=== PATIENT | female | born 1965 | race Caucasian/White ===

== ENCOUNTER 2018-07-02 21:03 | Inpatient (IN) | payer OTHER, SELFPAY ==
[~2018-07-02] VITALS: Ht 154.9 cm; Wt 55.7 kg
--- NOTE | 2018-07-02 21:27 | NUR ---
BROUGHT IN BY HARJINDER FOR ABD CRAMPING. PT TENDER IN ALL 4 QUADRANTS, STATES SHE HAS HAD THIS BEFORE. PT ALSO HYPERTENSIVE AT TRIAGE. PLACED ON PULSE OX AND BP MONITOR, CALL LIGHT IN REACH
[2018-07-02] MEDS ORDERED: MORPHINE SULFATE 4 MG/ML, 1ML IVPush PRN (21:30)
[2018-07-02] MEDS ORDERED: LABETALOL 5 MG/ML SYRINGE IVPush ONE (21:30)
[2018-07-02] MEDS ORDERED: SODIUM CHLORIDE FLUSH 10ML SYR IVF ONE (21:30)
[2018-07-02] MEDS ORDERED: ONDANSETRON 2MG/ML, 2ML IVPush ONE (21:30)
[2018-07-02] MEDS ORDERED: ONDANSETRON 2MG/ML, 2ML ONE ×2 (21:32→22:45)
[2018-07-02] MEDS ORDERED: MORPHINE SULFATE 4 MG/ML, 1ML ONE (21:33)
[2018-07-02 21:40] LABS: BASOPHILS % (AUTO) 0 % (0-1); EOSINOPHILS % (AUTO) 0 % (1-7); LYMPHOCYTES # (AUTO) 0.65 x10^3/uL (1-3.4); LYMPHOCYTES % (AUTO) 6 % (22-44); MD NO; MEAN CORPUSCULAR HEMOGLOBIN 32.1 pg (27.0-34.8); MEAN CORPUSCULAR HGB CONC 33.9 g/dL (32.4-35.8); MEAN CORPUSCULAR VOLUME 94.6 fL (80-100); MEAN PLATELET VOLUME 8.3 fL (7.4-10.4); MONOCYTES # (AUTO) 0.31 x10^3/uL (0.2-0.8); MONOCYTES % (AUTO) 3 % (2-9); NEUTROPHILS # (AUTO) 10.78 x10^3/uL (1.8-6.8); NEUTROPHILS % (AUTO) 92 % (42-75); PLATELET COUNT 229 x10^3/uL (130-400); RED CELL DISTRIBUTION WIDTH 13.6 % (9.6-15.2)
[2018-07-02 21:57] LABS: ALKALINE PHOSPHATASE 131 U/L (45-117); BILIRUBIN,TOTAL 0.5 mg/dL (0.2-1.0); TROPONIN I < 0.015 ng/mL (0.000-0.045)
[2018-07-02] MEDS ORDERED: PLEASE ENTER HEIGHT AND WEIGHT MC SCH (22:00)
[2018-07-02] MEDS ORDERED: PLEASE ENTER ALLERGIES MC SCH (22:00)
[2018-07-02 22:02] LABS: ALANINE AMINOTRANSFERASE 47 U/L (12-78); ALBUMIN 4.4 g/dL (3.4-5.0); ANION GAP 8 mmol/L (5-15); CALCIUM 8.7 mg/dL (8.5-10.1); CHLORIDE 104 mmol/L (98-107); CREATININE 0.65 mg/dL (0.55-1.02)
[2018-07-02] MEDS ORDERED: OMNIPAQUE 350 MG/ML, 100ML BOTTLE ONE (22:39)
--- NOTE | 2018-07-02 22:45 | NUR ---
ASSISTED PT TO BATHROOM, PT WALKED WITH FAIRLY STEADY GAIT
[2018-07-02] MEDS ORDERED: SODIUM CHLORIDE 0.9% 1,000 ML IV ONE (22:54)
[2018-07-02] MEDS ORDERED: ENALAPRILAT 1.25 MG/ML, 2ML IV ONE (23:30)
[2018-07-02] MEDS ORDERED: ENALAPRILAT 1.25 MG/ML, 2ML ONE (23:35)
--- NOTE | 2018-07-02 23:40 | NUR ---
PT PRESSURE DOWN TO 212/134, PT GIVEN VASOTEC, NG TUBE INSERTED SUCCESFULLY
[2018-07-03 00:42] VITALS: BP 220/114
[2018-07-03] MEDS ORDERED: SODIUM CHLORIDE 0.9% 1,000 ML IV SCH (00:46)
[2018-07-03] MEDS ORDERED: ACETAMINOPHEN 325 MG TABLET PO PRN (01:00)
[2018-07-03] MEDS ORDERED: ONDANSETRON 2MG/ML, 2ML IVPush PRN (01:00)
[2018-07-03] MEDS: hydrALAzine 20 MG/ML, 1ML IVPush PRN ×2 (01:28→05:31)
[2018-07-03 02:00] VITALS: BP 173/104
[2018-07-03 02:20] LABS: BASOPHILS # (AUTO) 0.01 x10^3/uL (0-0.1); BASOPHILS % (AUTO) 0 % (0-1); EOSINOPHILS % (AUTO) 0 % (1-7); LYMPHOCYTES # (AUTO) 0.75 x10^3/uL (1-3.4); LYMPHOCYTES % (AUTO) 6 % (22-44); MD NO; MEAN CORPUSCULAR HGB CONC 33.9 g/dL (32.4-35.8); MEAN CORPUSCULAR VOLUME 94.4 fL (80-100); MEAN PLATELET VOLUME 8.7 fL (7.4-10.4); MONOCYTES # (AUTO) 0.55 x10^3/uL (0.2-0.8); MONOCYTES % (AUTO) 4 % (2-9); NEUTROPHILS % (AUTO) 90 % (42-75); PLATELET COUNT 207 x10^3/uL (130-400); RED BLOOD COUNT 5.32 x10^6/uL (3.82-5.3); RED CELL DISTRIBUTION WIDTH 14.2 % (9.6-15.2)
[2018-07-03 04:29] LABS: MICROSCOPIC INDICATED
[2018-07-03 04:30] LABS: HCG UR SG > 1.045 (1.003-1.030)
[2018-07-03 04:51] LABS: CULTURE INDICATED? YES
[2018-07-03] MEDS ORDERED: HYDROmorphone 2 MG/ML, 1ML ONE ×4 (05:27→19:29)
[2018-07-03] MEDS ORDERED: HYDROmorphone 1 MG/ML, 1ML INJ IM PRN (05:30)
[2018-07-03] MEDS: HYDROmorphone 1 MG/ML, 1ML INJ IV PRN ×4 (05:33→19:33)
[2018-07-03] MEDS ORDERED: HYDROmorphone 1 MG/ML, 1ML INJ IV PRN (06:00)
[2018-07-03 06:47] VITALS: BP 124/76
[2018-07-03] MEDS: FAMOTIDINE 20 MG/2 ML IVPush SCH ×2 (07:57→20:50)
[2018-07-03 10:41] LABS: AMPHETAMINE SCREEN, URINE Positive (Negative); BARBITURATE SCREEN, URINE Negative (Negative); BENZODIAZEPINE SCREEN, URINE Negative (Negative); CANNABINOID SCREEN, URINE Positive (Negative); COCAINE SCREEN, URINE Negative (Negative); METHADONE SCREEN, URINE Negative (Negative); OPIATE SCREEN, URINE Positive (Negative)
[2018-07-03] MEDS ORDERED: CEFTRIAXONE PMX 1GM/50ML 50 ML IV SCH (11:30)
[2018-07-03] MEDS ORDERED: LORazepam 2 MG/ML, 1ML IVPush PRN (12:00)
[2018-07-03 12:44] LABS: PROTHROMBIN TIME 10.5 Seconds (9.6-11.5)
[2018-07-03 13:07] VITALS: BP 136/87
[2018-07-03] MEDS: SODIUM CHLORIDE 0.9% 1,000 ML IV SCH (14:54)
[2018-07-03 18:48] VITALS: BP 170/103
[2018-07-04] MEDS: hydrALAzine 20 MG/ML, 1ML IVPush PRN ×4 (00:46→19:47)
[2018-07-04 00:47] VITALS: BP 217/130
[2018-07-04 02:13] VITALS: BP 173/95
[2018-07-04 05:32] LABS: MEAN CORPUSCULAR VOLUME 94.1 fL (80-100); MEAN PLATELET VOLUME 8.9 fL (7.4-10.4); PLATELET COUNT 223 x10^3/uL (130-400); RED CELL DISTRIBUTION WIDTH 14.2 % (9.6-15.2)
[2018-07-04 05:40] LABS: ALANINE AMINOTRANSFERASE 33 U/L (12-78); ALBUMIN 3.5 g/dL (3.4-5.0); ANION GAP 9 mmol/L (5-15); CALCIUM 8.8 mg/dL (8.5-10.1); CHLORIDE 108 mmol/L (98-107); CREATININE 0.85 mg/dL (0.55-1.02)
[2018-07-04 05:42] LABS: ALKALINE PHOSPHATASE 97 U/L (45-117); BILIRUBIN,TOTAL 1.3 mg/dL (0.2-1.0); TOTAL PROTEIN 6.9 g/dL (6.4-8.2)
[2018-07-04 05:51] LABS: MD YES
[2018-07-04 05:56] LABS: BANDS%(MANUAL) 22 % (0-7); BASOS#(MANUAL) 0.03 x10^3/uL (0-0.1); BASOS% (MANUAL) 1 % (0-1); LYMPH#(MANUAL) 0.35 x10^3/uL (1-3.4); LYMPHS% (MANUAL) 11 % (22-44); MONOS#(MANUAL) 0.42 x10^3/uL (0.3-2.7); MONOS% (MANUAL) 13 % (2-9); SEGS% (MANUAL) 53 % (42-75)
[2018-07-04 05:57] LABS: <PLATELET ESTIMATE> ADEQUATE; <PLT MORPHOLOGY> NORMAL PLT MORPH; <RBC MORPHOLOGY> NORMAL
[2018-07-04] MEDS: SODIUM CHLORIDE 0.9% 1,000 ML IV SCH (06:19)
[2018-07-04] MEDS ORDERED: POTASSIUM CHLORIDE 40 MEQ in SODIUM CHLORIDE 0.9% 500 ML IV ONE (06:30)
[2018-07-04] MEDS ORDERED: MAGNESIUM SULFATE 3 GM in SODIUM CHLORIDE 0.9% 100 ML IV ONE (06:30)
[2018-07-04 07:07] VITALS: BP 164/105
[2018-07-04] MEDS: FAMOTIDINE 20 MG/2 ML IVPush SCH ×2 (09:00→19:47)
[2018-07-04] MEDS ORDERED: AZITHROMYCIN 500 MG in SODIUM CHLORIDE 0.9% 250 ML IV SCH (10:00)
[2018-07-04 10:31] LABS: FIO2 RA %
[2018-07-04] MEDS ORDERED: SODIUM CHLORIDE 0.9% 1,000ML IVBOLUS STA (11:58)
[2018-07-04] MEDS ORDERED: PHARMACOKINETIC CONSULTATION MC ONE (12:30)
[2018-07-04] MEDS ORDERED: VANCOMYCIN PER PHARMACY MC PRN (12:30)
[2018-07-04] MEDS ORDERED: PHARMACOKINETIC MONITORING MC PRN (12:30)
[2018-07-04] MEDS: PIPERACILLIN/TAZO/PMX 3.375GM 50 ML IV SCH ×2 (12:59→19:33)
[2018-07-04 13:10] VITALS: BP 182/116
[2018-07-04] MEDS ORDERED: LORazepam 2 MG/ML, 1ML ONE (14:11)
[2018-07-04] MEDS ORDERED: MIDAZOLAM 1 MG/ML, 2ML ONE (14:17)
[2018-07-04] MEDS ORDERED: FENTANYL PF 250 MCG/5ML ONE (14:17)
[2018-07-04] MEDS ORDERED: SUCCINYLCHOLINE 20 MG/ML, 10ML ONE (14:18)
[2018-07-04] MEDS ORDERED: PROPOFOL 10 MG/ML, 20ML ONE (14:18)
[2018-07-04] MEDS ORDERED: ROCURONIUM 10MG/ML,5ML ONE (14:18)
[2018-07-04] MEDS: VANCOMYCIN PMX 1GM/200ML 200 ML IV SCH (14:24)
[2018-07-04] MEDS ORDERED: LORazepam 2 MG/ML, 1ML IV PRN (14:30)
[2018-07-04] MEDS ORDERED: PHENYLEPHRINE 10 MG/ML ONE (14:58)
[2018-07-04] MEDS ORDERED: HYDROCORTISONE 100 MG INJ. ONE (15:14)
[2018-07-04] MEDS ORDERED: BUPIVACAINE/PF-EPI 0.5% 1:200K INFIL ONE (15:38)
[2018-07-04] MEDS ORDERED: FENTANYL PF 100 MCG/2ML ONE (15:46)
[2018-07-04] MEDS ORDERED: PROPOFOL 50 ML ONE (15:48)
[2018-07-04] MEDS ORDERED: HYDROmorphone 2 MG/ML, 1ML ONE (16:31)
[2018-07-04] MEDS: HYDROmorphone 1 MG/ML, 1ML INJ IV PRN (16:32)
[2018-07-04] MEDS ORDERED: PROPOFOL 100 ML IV ONE (16:37)
[2018-07-04] MEDS ORDERED: ONDANSETRON 2MG/ML, 2ML IV PRN (17:00)
[2018-07-04] MEDS ORDERED: morphine SULFATE 10 MG/ML, 1ML IV PRN (17:00)
[2018-07-04] MEDS ORDERED: CEFOTETAN PMX 1GM/50ML 50 ML IVPB SCH (17:00)
[2018-07-04] MEDS ORDERED: LORazepam 1MG TABLET PO PRN (17:00)
[2018-07-04] MEDS: FENTANYL PF 2,500 MCG in SODIUM CHLORIDE 0.9% 200 ML IV PRN (17:08)
[2018-07-04 17:12] LABS: ALBUMIN 2.4 g/dL (3.4-5.0); ANION GAP 7 mmol/L (5-15); CALCIUM 7.1 mg/dL (8.5-10.1); CHLORIDE 115 mmol/L (98-107)
[2018-07-04 17:16] LABS: ALANINE AMINOTRANSFERASE 24 U/L (12-78); ALKALINE PHOSPHATASE 72 U/L (45-117); BILIRUBIN,TOTAL 1.9 mg/dL (0.2-1.0); CREATININE 0.63 mg/dL (0.55-1.02)
[2018-07-04] MEDS ORDERED: PHARMACY MAY ADJ FOR RENAL FX MC SCH (17:30)
[2018-07-04] MEDS ORDERED: DEXTROSE 4 GM TAB.CHEW PO PRN (17:30)
[2018-07-04] MEDS ORDERED: DEXTROSE 50%, 50ML SYRINGE IVPush PRN (17:30)
[2018-07-04] MEDS ORDERED: GLUCAGON 1 MG IM PRN (17:30)
[2018-07-04] MEDS ORDERED: LIDOCAINE-MPF 1%, 2ML ENDO PRN (17:30)
[2018-07-04] MEDS: METRONIDAZOLE PMX 500MG/100ML 100 ML IVPB SCH (17:41)
[2018-07-04] MEDS: POTASSIUM CHLORIDE 20 MEQ in LACTATED RINGERS 1,000 ML IV SCH (18:40)
[2018-07-04] MEDS: ALBUTEROL/IPRATROPIUM 2.5MG/0.5MG, 3 ML INLINE SCH ×2 (19:15→23:30)
[2018-07-04] MEDS: SODIUM CHLORIDE FLUSH 10ML SYR IVF SCH (19:49)
[2018-07-04 20:02] LABS: INTERNATIONAL NORMALIZED RATIO 1.21 (0.93-1.1); PROTHROMBIN TIME 12.6 Seconds (9.6-11.5)
[2018-07-04 20:10] LABS: BASOPHILS % (AUTO) 0 % (0-1); EOSINOPHILS % (AUTO) 0 % (1-7); LYMPHOCYTES # (AUTO) 0.44 x10^3/uL (1-3.4); LYMPHOCYTES % (AUTO) 8 % (22-44); MEAN CORPUSCULAR HEMOGLOBIN 32.3 pg (27.0-34.8); MEAN CORPUSCULAR HGB CONC 34.4 g/dL (32.4-35.8); MEAN CORPUSCULAR VOLUME 93.8 fL (80-100); MEAN PLATELET VOLUME 9.2 fL (7.4-10.4); MONOCYTES % (AUTO) 5 % (2-9); NEUTROPHILS # (AUTO) 4.85 x10^3/uL (1.8-6.8); NEUTROPHILS % (AUTO) 87 % (42-75); PLATELET COUNT 185 x10^3/uL (130-400); RED BLOOD COUNT 4.42 x10^6/uL (3.82-5.3); RED CELL DISTRIBUTION WIDTH 14.4 % (9.6-15.2)
[2018-07-04 20:11] LABS: MD NO
[2018-07-04 20:41] LABS: TROPONIN I 0.077 ng/mL (0.000-0.045)
[2018-07-04] MEDS: INSULIN LISPRO 100 UNITS/ML, PEN SQ-INSULIN SCH (20:51)
[2018-07-05] MEDS: VANCOMYCIN PMX 1GM/200ML 200 ML IV SCH (00:07)
[2018-07-05 00:56] LABS: TROPONIN I 0.061 ng/mL (0.000-0.045)
[2018-07-05] MEDS: PROPOFOL 100 ML IV PRN ×2 (00:56→09:57)
[2018-07-05] MEDS: PIPERACILLIN/TAZO/PMX 3.375GM 50 ML IV SCH ×4 (01:31→20:30)
[2018-07-05] MEDS: METRONIDAZOLE PMX 500MG/100ML 100 ML IVPB SCH (02:44)
[2018-07-05] MEDS: ALBUTEROL/IPRATROPIUM 2.5MG/0.5MG, 3 ML INLINE SCH ×6 (03:30→23:01)
[2018-07-05 04:37] LABS: ALBUMIN 2.1 g/dL (3.4-5.0); ANION GAP 4 mmol/L (5-15); CALCIUM 7.5 mg/dL (8.5-10.1); CHLORIDE 115 mmol/L (98-107)
[2018-07-05 04:39] LABS: BASOPHILS # (AUTO) 0.01 x10^3/uL (0-0.1); BASOPHILS % (AUTO) 0 % (0-1); EOSINOPHILS % (AUTO) 0 % (1-7); LYMPHOCYTES # (AUTO) 0.41 x10^3/uL (1-3.4); LYMPHOCYTES % (AUTO) 6 % (22-44); MD NO; MEAN CORPUSCULAR HEMOGLOBIN 32.3 pg (27.0-34.8); MEAN CORPUSCULAR VOLUME 94.9 fL (80-100); MONOCYTES # (AUTO) 0.45 x10^3/uL (0.2-0.8); MONOCYTES % (AUTO) 6 % (2-9); NEUTROPHILS # (AUTO) 6.37 x10^3/uL (1.8-6.8); NEUTROPHILS % (AUTO) 88 % (42-75); PLATELET COUNT 173 x10^3/uL (130-400); RED BLOOD COUNT 3.85 x10^6/uL (3.82-5.3)
[2018-07-05 04:42] LABS: ALANINE AMINOTRANSFERASE 21 U/L (12-78); ALKALINE PHOSPHATASE 68 U/L (45-117); BILIRUBIN,TOTAL 1.4 mg/dL (0.2-1.0); CREATININE 0.88 mg/dL (0.55-1.02); TOTAL PROTEIN 4.8 g/dL (6.4-8.2)
[2018-07-05] MEDS: INSULIN LISPRO 100 UNITS/ML, PEN SQ-INSULIN SCH ×4 (05:41→20:30)
[2018-07-05] MEDS: POTASSIUM CHLORIDE 20 MEQ in LACTATED RINGERS 1,000 ML IV SCH (05:41)
[2018-07-05] MEDS: SODIUM CHLORIDE 0.45% 1,000 ML IV SCH ×2 (08:15→20:30)
[2018-07-05] MEDS: FAMOTIDINE 20 MG/2 ML IVPush SCH ×2 (08:15→20:29)
[2018-07-05] MEDS: SODIUM CHLORIDE FLUSH 10ML SYR IVF SCH ×2 (08:15→20:34)
[2018-07-05] MEDS ORDERED: ZIPRASIDONE 20 MG INJ IM PRN (12:00)
[2018-07-05] MEDS: ENOXAPARIN 40 MG/0.4 ML SQ SCH (15:28)
[2018-07-05] MEDS: hydrALAzine 20 MG/ML, 1ML IVPush PRN (20:29)
[2018-07-06] MEDS: ALBUTEROL/IPRATROPIUM 2.5MG/0.5MG, 3 ML INLINE SCH ×2 (02:39→06:29)
[2018-07-06] MEDS: PIPERACILLIN/TAZO/PMX 3.375GM 50 ML IV SCH ×4 (02:59→21:05)
[2018-07-06 04:39] LABS: BASOPHILS # (AUTO) 0.01 x10^3/uL (0-0.1); BASOPHILS % (AUTO) 0 % (0-1); EOSINOPHILS # (AUTO) 0.01 x10^3/uL (0-0.4); EOSINOPHILS % (AUTO) 0 % (1-7); LYMPHOCYTES # (AUTO) 0.47 x10^3/uL (1-3.4); LYMPHOCYTES % (AUTO) 6 % (22-44); MD NO; MEAN CORPUSCULAR HEMOGLOBIN 32.3 pg (27.0-34.8); MEAN PLATELET VOLUME 8.6 fL (7.4-10.4); MONOCYTES # (AUTO) 0.36 x10^3/uL (0.2-0.8); MONOCYTES % (AUTO) 5 % (2-9); NEUTROPHILS # (AUTO) 6.72 x10^3/uL (1.8-6.8); NEUTROPHILS % (AUTO) 89 % (42-75); PLATELET COUNT 163 x10^3/uL (130-400); RED BLOOD COUNT 3.32 x10^6/uL (3.82-5.3); RED CELL DISTRIBUTION WIDTH 15.2 % (9.6-15.2)
[2018-07-06] MEDS ORDERED: FUROSEMIDE 20 MG/2 ML IV ONE (06:00)
[2018-07-06 06:11] LABS: ANION GAP 10 mmol/L (5-15); CALCIUM 7.7 mg/dL (8.5-10.1); CHLORIDE 111 mmol/L (98-107); CREATININE 0.81 mg/dL (0.55-1.02)
[2018-07-06] MEDS: INSULIN LISPRO 100 UNITS/ML, PEN SQ-INSULIN SCH ×4 (06:18→21:00)
[2018-07-06] MEDS: FENTANYL PF 2,500 MCG in SODIUM CHLORIDE 0.9% 200 ML IV PRN (06:22)
[2018-07-06] MEDS ORDERED: POTASSIUM CHLORIDE 40 MEQ in SODIUM CHLORIDE 0.9% 100 ML IV ONE (06:30)
[2018-07-06] MEDS ORDERED: POTASSIUM CHLORIDE 40 MEQ in SODIUM CHLORIDE 0.9% 500 ML IV ONE (08:00)
[2018-07-06] MEDS: FUROSEMIDE 20 MG/2 ML IV SCH ×2 (08:40→17:23)
[2018-07-06] MEDS: FAMOTIDINE 20 MG/2 ML IVPush SCH ×2 (08:41→21:10)
[2018-07-06] MEDS: SODIUM CHLORIDE FLUSH 10ML SYR IVF SCH ×2 (08:45→21:06)
[2018-07-06] MEDS: hydrALAzine 20 MG/ML, 1ML IVPush PRN ×2 (11:00→14:14)
[2018-07-06] MEDS ORDERED: DEXMEDETOMIDINE 200 MCG in SODIUM CHLORIDE 0.9% 48 ML IV PRN (11:00)
[2018-07-06] MEDS: LORazepam 2 MG/ML, 1ML IV PRN (14:14)
[2018-07-06] MEDS: ENOXAPARIN 40 MG/0.4 ML SQ SCH (19:40)
[2018-07-07] MEDS: PIPERACILLIN/TAZO/PMX 3.375GM 50 ML IV SCH (02:32)
[2018-07-07] MEDS: ERTAPENEM 1 GM in SODIUM CHLORIDE 0.9% 50 ML IV SCH (07:04)
[2018-07-07] MEDS: hydrALAzine 20 MG/ML, 1ML IVPush PRN ×3 (07:04→15:19)
[2018-07-07] MEDS: FAMOTIDINE 20 MG/2 ML IVPush SCH ×2 (09:07→21:28)
[2018-07-07] MEDS: FUROSEMIDE 20 MG/2 ML IV SCH ×2 (09:07→16:07)
[2018-07-07] MEDS: SODIUM CHLORIDE FLUSH 10ML SYR IVF SCH ×2 (09:07→21:28)
[2018-07-07 09:12] LABS: BASOPHILS # (AUTO) 0.02 x10^3/uL (0-0.1); BASOPHILS % (AUTO) 0 % (0-1); EOSINOPHILS # (AUTO) 0.12 x10^3/uL (0-0.4); EOSINOPHILS % (AUTO) 2 % (1-7); LYMPHOCYTES # (AUTO) 0.57 x10^3/uL (1-3.4); LYMPHOCYTES % (AUTO) 8 % (22-44); MD NO; MEAN CORPUSCULAR HEMOGLOBIN 31.4 pg (27.0-34.8); MEAN CORPUSCULAR HGB CONC 33.6 g/dL (32.4-35.8); MEAN CORPUSCULAR VOLUME 93.3 fL (80-100); MEAN PLATELET VOLUME 8.6 fL (7.4-10.4); MONOCYTES # (AUTO) 0.56 x10^3/uL (0.2-0.8); MONOCYTES % (AUTO) 8 % (2-9); NEUTROPHILS # (AUTO) 5.79 x10^3/uL (1.8-6.8); NEUTROPHILS % (AUTO) 82 % (42-75); PLATELET COUNT 195 x10^3/uL (130-400); RED BLOOD COUNT 3.68 x10^6/uL (3.82-5.3); RED CELL DISTRIBUTION WIDTH 15.1 % (9.6-15.2)
[2018-07-07] MEDS: INSULIN LISPRO 100 UNITS/ML, PEN SQ-INSULIN SCH ×3 (09:16→21:00)
[2018-07-07] MEDS: HYDROmorphone 2 MG/ML, 1ML IV PRN ×3 (09:22→15:07)
[2018-07-07] MEDS: FENTANYL PF 100 MCG/2ML IVPush PRN (13:27)
[2018-07-07] MEDS: ENALAPRILAT 1.25 MG/ML, 2ML IV PRN (13:37)
[2018-07-07] MEDS: ENOXAPARIN 40 MG/0.4 ML SQ SCH (16:07)
[2018-07-07] MEDS: D5%-0.9% NACL 1,000 ML IV SCH (16:12)
[2018-07-07] MEDS: LORazepam 2 MG/ML, 1ML IV PRN (16:53)
[2018-07-08] MEDS: FENTANYL PF 100 MCG/2ML IVPush PRN ×2 (01:05→03:53)
[2018-07-08] MEDS: INSULIN LISPRO 100 UNITS/ML, PEN SQ-INSULIN SCH ×4 (03:00→20:26)
[2018-07-08 05:55] LABS: BASOPHILS # (AUTO) 0.01 x10^3/uL (0-0.1); BASOPHILS % (AUTO) 0 % (0-1); EOSINOPHILS # (AUTO) 0.12 x10^3/uL (0-0.4); EOSINOPHILS % (AUTO) 2 % (1-7); LYMPHOCYTES # (AUTO) 0.44 x10^3/uL (1-3.4); LYMPHOCYTES % (AUTO) 6 % (22-44); MD NO; MEAN CORPUSCULAR HEMOGLOBIN 31.9 pg (27.0-34.8); MEAN CORPUSCULAR HGB CONC 33.9 g/dL (32.4-35.8); MEAN PLATELET VOLUME 8.1 fL (7.4-10.4); MONOCYTES # (AUTO) 0.81 x10^3/uL (0.2-0.8); MONOCYTES % (AUTO) 11 % (2-9); NEUTROPHILS # (AUTO) 6.05 x10^3/uL (1.8-6.8); NEUTROPHILS % (AUTO) 81 % (42-75); PLATELET COUNT 221 x10^3/uL (130-400); RED BLOOD COUNT 3.72 x10^6/uL (3.82-5.3)
[2018-07-08] MEDS: D5%-0.9% NACL 1,000 ML IV SCH (06:07)
[2018-07-08 06:57] LABS: ANION GAP 7 mmol/L (5-15); CALCIUM 8.3 mg/dL (8.5-10.1); CHLORIDE 109 mmol/L (98-107); CREATININE 0.53 mg/dL (0.55-1.02)
[2018-07-08] MEDS: LORazepam 2 MG/ML, 1ML IV PRN ×2 (07:43→20:14)
[2018-07-08] MEDS ORDERED: TPN PER PHARMACY MC PRN (09:00)
[2018-07-08] MEDS ORDERED: D5%-0.9% NACL 1,000 ML IV SCH (09:30)
[2018-07-08 09:33] LABS: PREALBUMIN 6.9 mg/dL (20.0-40.0)
[2018-07-08] MEDS: ERTAPENEM 1 GM in SODIUM CHLORIDE 0.9% 50 ML IV SCH (10:44)
[2018-07-08] MEDS: FAMOTIDINE 20 MG/2 ML IVPush SCH (10:44)
[2018-07-08] MEDS: FUROSEMIDE 20 MG/2 ML IV SCH ×2 (10:44→17:18)
[2018-07-08] MEDS: SODIUM CHLORIDE FLUSH 10ML SYR IVF SCH ×2 (10:46→20:15)
[2018-07-08] MEDS ORDERED: [UNRECOGNIZED DRUG - OTHER] IV SCH (17:00)
[2018-07-08] MEDS ORDERED: AMINO ACID 10% IV SCH (17:00)
[2018-07-08] MEDS ORDERED: SMOF TPN IV SCH (17:00)
[2018-07-08] MEDS ORDERED: DEXTROSE 50%, 50ML SYRINGE IVPush PRN (17:00)
[2018-07-08] MEDS ORDERED: FAT EMUL IV SCH (17:00)
[2018-07-08] MEDS ORDERED: FILTER, DISP 1.2 MICRON FOR TPN/PVN IV PRN (17:00)
[2018-07-08] MEDS ORDERED: DEXTROSE 10% 500 ML IV PRN (17:00)
[2018-07-08] MEDS ORDERED: DEXTROSE 70% IV SCH (17:00)
[2018-07-08] MEDS: ENOXAPARIN 40 MG/0.4 ML SQ SCH (17:18)
[2018-07-09] MEDS: hydrALAzine 20 MG/ML, 1ML IVPush PRN ×2 (00:13→04:12)
[2018-07-09] MEDS: ENALAPRILAT 1.25 MG/ML, 2ML IV PRN ×2 (01:43→06:21)
[2018-07-09] MEDS: INSULIN LISPRO 100 UNITS/ML, PEN SQ-INSULIN SCH ×4 (03:00→21:00)
[2018-07-09 03:48] LABS: BASOPHILS # (AUTO) 0.03 x10^3/uL (0-0.1); BASOPHILS % (AUTO) 1 % (0-1); EOSINOPHILS # (AUTO) 0.14 x10^3/uL (0-0.4); EOSINOPHILS % (AUTO) 2 % (1-7); LYMPHOCYTES # (AUTO) 0.48 x10^3/uL (1-3.4); LYMPHOCYTES % (AUTO) 8 % (22-44); MD NO; MEAN CORPUSCULAR HEMOGLOBIN 31.9 pg (27.0-34.8); MEAN CORPUSCULAR HGB CONC 33.9 g/dL (32.4-35.8); MEAN PLATELET VOLUME 7.9 fL (7.4-10.4); MONOCYTES # (AUTO) 0.97 x10^3/uL (0.2-0.8); MONOCYTES % (AUTO) 16 % (2-9); NEUTROPHILS # (AUTO) 4.41 x10^3/uL (1.8-6.8); NEUTROPHILS % (AUTO) 73 % (42-75); PLATELET COUNT 253 x10^3/uL (130-400); RED BLOOD COUNT 3.86 x10^6/uL (3.82-5.3); RED CELL DISTRIBUTION WIDTH 14.5 % (9.6-15.2)
[2018-07-09 03:59] LABS: ALANINE AMINOTRANSFERASE 47 U/L (12-78); ALBUMIN 2.6 g/dL (3.4-5.0); ANION GAP 5 mmol/L (5-15); CALCIUM 8.4 mg/dL (8.5-10.1); CHLORIDE 108 mmol/L (98-107); CREATININE 0.58 mg/dL (0.55-1.02)
[2018-07-09 04:01] LABS: ALKALINE PHOSPHATASE 101 U/L (45-117); BILIRUBIN,TOTAL 0.6 mg/dL (0.2-1.0); TOTAL PROTEIN 6.4 g/dL (6.4-8.2)
[2018-07-09] MEDS: SODIUM CHLORIDE FLUSH 10ML SYR IVF SCH ×2 (09:00→20:56)
[2018-07-09] MEDS: ERTAPENEM 1 GM in SODIUM CHLORIDE 0.9% 50 ML IV SCH (10:36)
[2018-07-09] MEDS ORDERED: POTASSIUM CHLORIDE 40 MEQ in SODIUM CHLORIDE 0.9% 100 ML IV ONE (11:00)
[2018-07-09] MEDS: ENOXAPARIN 40 MG/0.4 ML SQ SCH (16:41)
[2018-07-09] MEDS ORDERED: FAT EMUL IV SCH (17:00)
[2018-07-09] MEDS ORDERED: AMINO ACID 10% IV SCH (17:00)
[2018-07-09] MEDS ORDERED: [UNRECOGNIZED DRUG - OTHER] IV SCH (17:00)
[2018-07-09] MEDS ORDERED: SMOF TPN IV SCH (17:00)
[2018-07-09] MEDS ORDERED: FILTER, DISP 1.2 MICRON FOR TPN/PVN IV PRN (17:00)
[2018-07-09] MEDS ORDERED: DEXTROSE 70% IV SCH (17:00)
[2018-07-09] MEDS: HYDROmorphone 2 MG/ML, 1ML IV PRN ×3 (19:55→23:59)
[2018-07-09] MEDS: LORazepam 2 MG/ML, 1ML IV PRN (20:33)
[2018-07-10] MEDS: HYDROmorphone 2 MG/ML, 1ML IV PRN ×3 (02:47→15:14)
[2018-07-10] MEDS: INSULIN LISPRO 100 UNITS/ML, PEN SQ-INSULIN SCH ×2 (03:00→08:45)
[2018-07-10 03:44] LABS: ANION GAP 4 mmol/L (5-15); CALCIUM 8.2 mg/dL (8.5-10.1); CHLORIDE 117 mmol/L (98-107); CREATININE 0.87 mg/dL (0.55-1.02)
[2018-07-10 04:12] LABS: MEAN CORPUSCULAR HEMOGLOBIN 31.7 pg (27.0-34.8); MEAN CORPUSCULAR HGB CONC 33.4 g/dL (32.4-35.8); MEAN CORPUSCULAR VOLUME 94.7 fL (80-100); MEAN PLATELET VOLUME 8.2 fL (7.4-10.4); PLATELET COUNT 324 x10^3/uL (130-400); RED BLOOD COUNT 3.73 x10^6/uL (3.82-5.3); RED CELL DISTRIBUTION WIDTH 15.3 % (9.6-15.2)
[2018-07-10 05:48] LABS: BASOPHILS # (AUTO) 0.06 x10^3/uL (0-0.1); BASOPHILS % (AUTO) 1 % (0-1); EOSINOPHILS # (AUTO) 0.41 x10^3/uL (0-0.4); EOSINOPHILS % (AUTO) 3 % (1-7); LYMPHOCYTES # (AUTO) 1.07 x10^3/uL (1-3.4); LYMPHOCYTES % (AUTO) 8 % (22-44); MD SCAN; MONOCYTES # (AUTO) 1.54 x10^3/uL (0.2-0.8); MONOCYTES % (AUTO) 12 % (2-9); NEUTROPHILS # (AUTO) 9.63 x10^3/uL (1.8-6.8); NEUTROPHILS % (AUTO) 76 % (42-75)
[2018-07-10] MEDS: SODIUM CHLORIDE FLUSH 10ML SYR IVF SCH ×2 (08:30→20:00)
[2018-07-10] MEDS: LORazepam 2 MG/ML, 1ML IV PRN ×2 (10:51→20:00)
[2018-07-10] MEDS: ERTAPENEM 1 GM in SODIUM CHLORIDE 0.9% 50 ML IV SCH (10:51)
[2018-07-10] MEDS: hydrALAzine 20 MG/ML, 1ML IVPush PRN ×2 (15:14→20:00)
[2018-07-10] MEDS: ENOXAPARIN 40 MG/0.4 ML SQ SCH (16:41)
[2018-07-10] MEDS ORDERED: DEXTROSE 70% IV SCH (17:00)
[2018-07-10] MEDS ORDERED: SMOF TPN IV SCH (17:00)
[2018-07-10] MEDS ORDERED: AMINO ACID 10% IV SCH (17:00)
[2018-07-10] MEDS ORDERED: FILTER, DISP 1.2 MICRON FOR TPN/PVN IV PRN (17:00)
[2018-07-10] MEDS ORDERED: FAT EMUL IV SCH (17:00)
[2018-07-10] MEDS ORDERED: [UNRECOGNIZED DRUG - OTHER] IV SCH (17:00)
[2018-07-10] MEDS ORDERED: D5%-0.9% NACL 1,000 ML IV SCH (18:30)
[2018-07-10] MEDS: QUETIAPINE 25MG TABLET PO SCH (20:01)
[2018-07-11] MEDS: HYDROmorphone 2 MG/ML, 1ML IV PRN (00:12)
[2018-07-11] MEDS: hydrALAzine 20 MG/ML, 1ML IVPush PRN (02:51)
[2018-07-11] MEDS: LORazepam 2 MG/ML, 1ML IV PRN (04:16)
[2018-07-11 04:50] LABS: BASOPHILS # (AUTO) 0.04 x10^3/uL (0-0.1); BASOPHILS % (AUTO) 0 % (0-1); EOSINOPHILS # (AUTO) 0.44 x10^3/uL (0-0.4); EOSINOPHILS % (AUTO) 4 % (1-7); LYMPHOCYTES # (AUTO) 1.65 x10^3/uL (1-3.4); LYMPHOCYTES % (AUTO) 15 % (22-44); MD NO; MEAN CORPUSCULAR HEMOGLOBIN 31.9 pg (27.0-34.8); MEAN CORPUSCULAR HGB CONC 33.7 g/dL (32.4-35.8); MEAN CORPUSCULAR VOLUME 94.6 fL (80-100); MONOCYTES # (AUTO) 0.93 x10^3/uL (0.2-0.8); MONOCYTES % (AUTO) 8 % (2-9); NEUTROPHILS % (AUTO) 73 % (42-75); PLATELET COUNT 214 x10^3/uL (130-400); RED BLOOD COUNT 3.31 x10^6/uL (3.82-5.3); RED CELL DISTRIBUTION WIDTH 15.3 % (9.6-15.2)
[2018-07-11 05:12] LABS: ALANINE AMINOTRANSFERASE 44 U/L (12-78); ALBUMIN 2.3 g/dL (3.4-5.0); ANION GAP 4 mmol/L (5-15); CALCIUM 8.1 mg/dL (8.5-10.1); CHLORIDE 110 mmol/L (98-107); CREATININE 0.61 mg/dL (0.55-1.02)
[2018-07-11 05:15] LABS: ALKALINE PHOSPHATASE 91 U/L (45-117); BILIRUBIN,TOTAL 0.4 mg/dL (0.2-1.0)
[2018-07-11] MEDS: INSULIN LISPRO 100 UNITS/ML, PEN SQ-INSULIN SCH (07:42)
[2018-07-11] MEDS: QUETIAPINE 25MG TABLET PO SCH (09:44)
[2018-07-11] MEDS: SODIUM CHLORIDE FLUSH 10ML SYR IVF SCH ×2 (09:44→21:00)
[2018-07-11] MEDS: ERTAPENEM 1 GM in SODIUM CHLORIDE 0.9% 50 ML IV SCH (10:39)
[2018-07-11] MEDS: ENOXAPARIN 40 MG/0.4 ML SQ SCH (17:49)
[2018-07-12 04:48] LABS: CHLORIDE 105 mmol/L (98-107)
[2018-07-12 04:52] LABS: ANION GAP 5 mmol/L (5-15); BASOPHILS # (AUTO) 0.02 x10^3/uL (0-0.1); BASOPHILS % (AUTO) 0 % (0-1); CALCIUM 8.2 mg/dL (8.5-10.1); EOSINOPHILS # (AUTO) 0.31 x10^3/uL (0-0.4); EOSINOPHILS % (AUTO) 3 % (1-7); LYMPHOCYTES # (AUTO) 1.59 x10^3/uL (1-3.4); LYMPHOCYTES % (AUTO) 15 % (22-44); MD NO; MEAN CORPUSCULAR HEMOGLOBIN 32.2 pg (27.0-34.8); MEAN CORPUSCULAR HGB CONC 34.5 g/dL (32.4-35.8); MEAN CORPUSCULAR VOLUME 93.3 fL (80-100); MONOCYTES # (AUTO) 0.69 x10^3/uL (0.2-0.8); MONOCYTES % (AUTO) 7 % (2-9); NEUTROPHILS % (AUTO) 75 % (42-75); PLATELET COUNT 292 x10^3/uL (130-400); RED BLOOD COUNT 3.38 x10^6/uL (3.82-5.3); RED CELL DISTRIBUTION WIDTH 14.9 % (9.6-15.2)
[2018-07-12] MEDS: ERTAPENEM 1 GM in SODIUM CHLORIDE 0.9% 50 ML IV SCH (12:13)
[2018-07-12] MEDS: ZIPRASIDONE 20 MG INJ IM PRN ×2 (12:16→19:56)
[2018-07-12] MEDS ORDERED: MAGNESIUM SULFATE PMX 2GM/50ML 50 ML IV ONE (16:00)
[2018-07-12] MEDS ORDERED: GADOBUTROL 7.5 MMOL/7.5 ML PFS ONE (16:34)
[2018-07-12] MEDS ORDERED: MIDAZOLAM 1 MG/ML, 2ML ONE (17:14)
[2018-07-12] MEDS ORDERED: MIDAZOLAM 1 MG/ML, 2ML IVPush ONE (17:30)
[2018-07-12] MEDS: SODIUM CHLORIDE FLUSH 10ML SYR IVF SCH ×2 (21:11→21:12)
[2018-07-12] MEDS: ENOXAPARIN 40 MG/0.4 ML SQ SCH (21:12)
[2018-07-13 04:52] LABS: BASOPHILS # (AUTO) 0.02 x10^3/uL (0-0.1); BASOPHILS % (AUTO) 0 % (0-1); EOSINOPHILS # (AUTO) 0.17 x10^3/uL (0-0.4); EOSINOPHILS % (AUTO) 2 % (1-7); LYMPHOCYTES # (AUTO) 1.24 x10^3/uL (1-3.4); LYMPHOCYTES % (AUTO) 13 % (22-44); MD NO; MEAN CORPUSCULAR HGB CONC 32.9 g/dL (32.4-35.8); MEAN CORPUSCULAR VOLUME 94.2 fL (80-100); MONOCYTES # (AUTO) 0.59 x10^3/uL (0.2-0.8); MONOCYTES % (AUTO) 6 % (2-9); NEUTROPHILS % (AUTO) 79 % (42-75); PLATELET COUNT 229 x10^3/uL (130-400); RED BLOOD COUNT 3.65 x10^6/uL (3.82-5.3); RED CELL DISTRIBUTION WIDTH 14.6 % (9.6-15.2)
[2018-07-13 05:06] LABS: ANION GAP 8 mmol/L (5-15); CALCIUM 8.2 mg/dL (8.5-10.1); CHLORIDE 109 mmol/L (98-107); CREATININE 0.94 mg/dL (0.55-1.02)
[2018-07-13] MEDS: SODIUM CHLORIDE FLUSH 10ML SYR IVF SCH ×2 (09:00→20:12)
[2018-07-13] MEDS: ERTAPENEM 1 GM in SODIUM CHLORIDE 0.9% 50 ML IV SCH (11:00)
[2018-07-13] MEDS ORDERED: OMNIPAQUE 350 MG/ML, 100ML BOTTLE ONE (15:12)
[2018-07-13 19:36] VITALS: BP 150/92
[2018-07-13] MEDS: HYDROmorphone 2 MG/ML, 1ML IV PRN (20:11)
[2018-07-13] MEDS: ENOXAPARIN 40 MG/0.4 ML SQ SCH (20:12)
[2018-07-14] MEDS: HYDROmorphone 2 MG/ML, 1ML IV PRN ×3 (01:02→12:08)
[2018-07-14 01:59] VITALS: BP 158/93
[2018-07-14 06:31] LABS: ALBUMIN 2.4 g/dL (3.4-5.0); ANION GAP 5 mmol/L (5-15); CALCIUM 8.2 mg/dL (8.5-10.1); CHLORIDE 105 mmol/L (98-107)
[2018-07-14 06:36] LABS: ALANINE AMINOTRANSFERASE 42 U/L (12-78); ALKALINE PHOSPHATASE 140 U/L (45-117); BILIRUBIN,TOTAL 0.3 mg/dL (0.2-1.0); CREATININE 0.68 mg/dL (0.55-1.02); TOTAL PROTEIN 6.3 g/dL (6.4-8.2)
[2018-07-14 06:38] LABS: BASOPHILS # (AUTO) 0.03 x10^3/uL (0-0.1); BASOPHILS % (AUTO) 0 % (0-1); EOSINOPHILS # (AUTO) 0.28 x10^3/uL (0-0.4); EOSINOPHILS % (AUTO) 3 % (1-7); LYMPHOCYTES # (AUTO) 1.39 x10^3/uL (1-3.4); LYMPHOCYTES % (AUTO) 15 % (22-44); MD NO; MEAN CORPUSCULAR HEMOGLOBIN 31.5 pg (27.0-34.8); MEAN CORPUSCULAR HGB CONC 33.8 g/dL (32.4-35.8); MEAN CORPUSCULAR VOLUME 93.3 fL (80-100); MEAN PLATELET VOLUME 8.6 fL (7.4-10.4); MONOCYTES # (AUTO) 0.98 x10^3/uL (0.2-0.8); MONOCYTES % (AUTO) 11 % (2-9); NEUTROPHILS # (AUTO) 6.54 x10^3/uL (1.8-6.8); NEUTROPHILS % (AUTO) 71 % (42-75); PLATELET COUNT 340 x10^3/uL (130-400); RED BLOOD COUNT 3.32 x10^6/uL (3.82-5.3); RED CELL DISTRIBUTION WIDTH 14.3 % (9.6-15.2)
[2018-07-14 08:34] VITALS: BP 151/94
[2018-07-14] MEDS: SODIUM CHLORIDE FLUSH 10ML SYR IVF SCH ×2 (08:54→21:00)
[2018-07-14] MEDS: ERTAPENEM 1 GM in SODIUM CHLORIDE 0.9% 50 ML IV SCH (12:08)
[2018-07-14 12:14] VITALS: BP 140/84
[2018-07-14 20:41] VITALS: BP 161/98
[2018-07-14] MEDS ORDERED: ATORVASTATIN 40 MG TABLET PO SCH (21:00)
[2018-07-14] MEDS: LISINOPRIL 10 MG TABLET PO SCH (21:31)
[2018-07-14] MEDS: ENOXAPARIN 40 MG/0.4 ML SQ SCH (21:31)
[2018-07-15 02:20] VITALS: BP 133/86
[2018-07-15 04:39] LABS: BASOPHILS # (AUTO) 0.06 x10^3/uL (0-0.1); BASOPHILS % (AUTO) 1 % (0-1); EOSINOPHILS # (AUTO) 0.24 x10^3/uL (0-0.4); EOSINOPHILS % (AUTO) 3 % (1-7); LYMPHOCYTES # (AUTO) 1.13 x10^3/uL (1-3.4); LYMPHOCYTES % (AUTO) 13 % (22-44); MD NO; MEAN CORPUSCULAR HEMOGLOBIN 31.8 pg (27.0-34.8); MEAN CORPUSCULAR HGB CONC 34.6 g/dL (32.4-35.8); MEAN CORPUSCULAR VOLUME 92.1 fL (80-100); MEAN PLATELET VOLUME 8.2 fL (7.4-10.4); MONOCYTES # (AUTO) 0.85 x10^3/uL (0.2-0.8); MONOCYTES % (AUTO) 10 % (2-9); NEUTROPHILS # (AUTO) 6.44 x10^3/uL (1.8-6.8); NEUTROPHILS % (AUTO) 74 % (42-75); PLATELET COUNT 355 x10^3/uL (130-400); RED BLOOD COUNT 3.44 x10^6/uL (3.82-5.3); RED CELL DISTRIBUTION WIDTH 14.2 % (9.6-15.2)
[2018-07-15 04:49] LABS: ANION GAP 6 mmol/L (5-15); CALCIUM 8.2 mg/dL (8.5-10.1); CHLORIDE 106 mmol/L (98-107); CREATININE 0.64 mg/dL (0.55-1.02)
[2018-07-15] MEDS ORDERED: ASPIRIN 325 MG TABLET EC PO SCH (06:00)
[2018-07-15] MEDS: SODIUM CHLORIDE FLUSH 10ML SYR IVF SCH (07:24)
[2018-07-15] MEDS: LISINOPRIL 10 MG TABLET PO SCH (07:24)
[2018-07-15] MEDS ORDERED: TRAZODONE 50MG TABLET PO PRN (08:00)
[2018-07-15 09:58] VITALS: BP 113/71
[2018-07-15] MEDS ORDERED: NICOTINE 7 MG/24 HR PATCH.TD24 TD SCH (10:30)
[2018-07-15] MEDS ORDERED: ERTAPENEM 1 GM in SODIUM CHLORIDE 0.9% 50 ML IV SCH (11:00)
[2018-07-15] MEDS ORDERED: LISI-167 PO (12:22)
[2018-07-15] MEDS ORDERED: NICO-485 TD (12:22)
[2018-07-15] MEDS ORDERED: ATOR40TA78 PO (12:22)
[2018-07-15] MEDS ORDERED: ASPI-650 PO (12:22)
[2018-07-15 12:34] VITALS: BP 131/84
== END 2018-07-15 15:18 | DRG 853 ==
LOC: ED 23:31 → 5SO 07-03 00:19 → ED 07-03 00:20 → 5SO 07-03 00:20 → ED 07-03 00:24 → CCU 07-04 16:15 → ICU 07-07 02:52 → CCU 07-07 16:43 → 4EST 07-13 18:31
PROVIDERS: ADMIT Family Medicine; ATTEND Internal Medicine
PROC: 0WJP4ZZ Inspection of Gastrointestinal Tract, Percutaneous Endoscopic Approach (ICD-10-PCS; 2018-07-04)
PROC: 5A1945Z Respiratory Ventilation, 24-96 Consecutive Hours (ICD-10-PCS; 2018-07-04)
PROC: 0BH17EZ Insertion of Endotracheal Airway into Trachea, Via Natural or Artificial Opening (ICD-10-PCS; 2018-07-04)
PROC: 0DB80ZZ Excision of Small Intestine, Open Approach (ICD-10-PCS; principal; 2018-07-04 14:15)
PROC: 02HV33Z Insertion of Infusion Device into Superior Vena Cava, Percutaneous Approach (ICD-10-PCS; 2018-07-08)
PROC: B548ZZA Ultrasonography of Superior Vena Cava, Guidance (ICD-10-PCS; 2018-07-08)
DX: A41.9 Sepsis, unspecified organism (principal); G93.41 Metabolic encephalopathy; K55.029 Acute infarction of small intestine, extent unspecified; K65.0 Generalized (acute) peritonitis; E87.0 Hyperosmolality and hypernatremia; E87.4 Mixed disorder of acid-base balance; K56.600 Partial intestinal obstruction, unspecified as to cause; Z99.11 Dependence on respirator [ventilator] status; M48.56XA Collapsed vertebra, not elsewhere classified, lumbar region, initial encounter for fracture; B19.20 Unspecified viral hepatitis C without hepatic coma; D72.819 Decreased white blood cell count, unspecified; E83.42 Hypomagnesemia; E86.0 Dehydration; F15.129 Other stimulant abuse with intoxication, unspecified; F17.210 Nicotine dependence, cigarettes, uncomplicated; I11.9 Hypertensive heart disease without heart failure; I16.0 Hypertensive urgency; J44.9 Chronic obstructive pulmonary disease, unspecified; Z86.73 Personal history of transient ischemic attack (TIA), and cerebral infarction without residual deficits
CPT/HCPCS: 36415; 36600; 74018; 84145; 87806; 99285; J3475; J3490; J7042; J7620; 36573; 70450; 70496; 70498; 70551; 70553; 71045; 74177; 80048; 80053; 80074; 80307; 81001; 81025; 82140; 82803; 82962; 83605; 83690; 83735; 84100; 84134; 84478; 84484; 85025; 85610; 85730; 87040; 87070; 87075; 87076; 87077; 87081; 87086; 87147; 87186; 87205; 87521; 88307; 93005; 93306; 93308; 94002; 94003; 94150; 94640; A9585; G0378; J0610; J0696; J1170; J1335; J1650; J2250; J2405; J2543; J2704; J3010; J3370; J3480; J3486; Q9967; C1751; G0475; J0330; J0360; J1720; J1815; J1940; J2060; J2370; J3420; J7030; J7040; J7050; J7120

== ENCOUNTER 2018-07-19 12:38 | Emergency (ER) | payer OTHER ==
[~2018-07-19] VITALS: Ht 154.9 cm; Wt 51.1 kg
[~2018-07-19 12:38] MED LIST: ASPI-650 PO; ATOR40TA78 PO; LISI-167 PO; NICO-485 TD
[2018-07-19 12:46] VITALS: BP 149/98
--- NOTE | 2018-07-19 14:00 | NUR ---
WELL APPROXIMATED SURGICAL ABDOMINAL WOUND WITH APPROX [address] NO ERYTHEMA OR DISCHARGE NOTED
--- NOTE | 2018-07-19 14:30 | NUR ---
PT TO BE DISCHARGED WITH YOUNG REMAINING IN PLACE
--- NOTE | 2018-07-19 14:42 | NUR ---
AMBULATED TO DISCHARGE DESK, STEADY GAIT.
== END 2018-07-19 14:44 | disposition home or self-care (01) ==
LOC: ED 13:38
DX: L03.311 Cellulitis of abdominal wall (principal); I10 Essential (primary) hypertension; F17.200 Nicotine dependence, unspecified, uncomplicated
CPT/HCPCS: 99283

== ENCOUNTER 2018-07-21 09:28 | Emergency (ER) | payer OTHER ==
[~2018-07-21] VITALS: Ht 154.9 cm; Wt 52.0 kg
[2018-07-21 09:32] VITALS: BP 165/98
--- NOTE | 2018-07-21 09:40 | NUR ---
FIRST CONTACT WITH PT. PT STATES "I NEED TO GET SOME YOUNG OUT THAT ARE ON MY STOMACH." NO REDNESS/SWELLING NOTED ON STAPLE SITE. PT DENIES ANY PAIN/N/V/D AT THIS TIME. PT'S AOX4. RESPS EVEN AND UNLABORED.
--- NOTE | 2018-07-21 11:10 | NUR ---
PT GIVEN DC INSTRUCTIONS. PT AMB TO DC WITH STEADY GAIT. PT'S AOX4. RESPS EVEN AND UNLABORED. NO ACUTE DISTRESS AT DC.
== END 2018-07-21 11:11 | disposition home or self-care (01) ==
LOC: ED 11:05
DX: Z48.01 Encounter for change or removal of surgical wound dressing (principal); I10 Essential (primary) hypertension; F17.200 Nicotine dependence, unspecified, uncomplicated
CPT/HCPCS: 99281

== ENCOUNTER 2020-03-16 16:12 | Emergency (ER) | payer OTHER ==
[~2020-03-16] VITALS: Ht 154.9 cm; Wt 55.2 kg
[2020-03-16] MEDS ORDERED: OXYcodone/APAP 5/325MG TABLET PO ONE (17:00)
[2020-03-16] MEDS ORDERED: OXYcodone/APAP 5/325MG TABLET ONE (17:12)
[2020-03-16] MEDS ORDERED: FUROSEMIDE 40 MG/4 ML ONE (18:03)
[2020-03-16 18:13] VITALS: BP 127/62
== END 2020-03-16 18:14 | disposition home or self-care (01) ==
LOC: ED 17:00
DX: S62.617A Displaced fracture of proximal phalanx of left little finger, initial encounter for closed fracture (principal); M79.89 Other specified soft tissue disorders; W18.39XA Other fall on same level, initial encounter; Y93.89 Activity, other specified; Y92.098 Other place in other non-institutional residence as the place of occurrence of the external cause; Y99.8 Other external cause status
CPT/HCPCS: 29125; 99283